=== PATIENT | male | born 1955 | race Caucasian/White ===

== ENCOUNTER → 2020-07-06 | Outpatient (CLI) | payer OTHER | LOC: EXRD 14:39 | DX: M85.80 Other specified disorders of bone density and structure, unspecified site (principal); Z79.52 Long term (current) use of systemic steroids; R05 Cough; M31.30 Wegener's granulomatosis without renal involvement | CPT/HCPCS: 71046 ==

== ENCOUNTER → 2020-08-04 | Outpatient (CLI) | payer OTHER | LOC: EXRD 10:59 | DX: M85.80 Other specified disorders of bone density and structure, unspecified site (principal); Z79.52 Long term (current) use of systemic steroids; M81.0 Age-related osteoporosis without current pathological fracture | CPT/HCPCS: 77080 ==